=== PATIENT | male | born 1970 | race African-American/Black ===

== ENCOUNTER 2025-03-11 12:18 | Emergency (ER) | payer MEDICARE, MEDICAID ==
[~2025-03-11] VITALS: Ht 180.3 cm; Wt 91.0 kg
[~2025-03-11 12:18] MED LIST: AMLO5TAB88 PO; ASPI-1160 PO; TOPUD PO
[2025-03-11 12:21] VITALS: O2SAT 95
[2025-03-11] MEDS: IBUPROFEN 600MG TABLET PO ONE (14:01)
[2025-03-11 15:30] VITALS: BP 151/98; PULSE 76; RESP 18; TEMP 36.7; O2SAT 99
== END 2025-03-11 16:42 | disposition home or self-care (01) ==
LOC: ER 12:18
DX: M79.671 Pain in right foot (principal); E11.9 Type 2 diabetes mellitus without complications; I10 Essential (primary) hypertension
CPT/HCPCS: 99284; 73610; 73630; A6449

== ENCOUNTER 2025-05-08 11:20 | Inpatient (IN) | payer MEDICARE, MEDICAID ==
[~2025-05-08] VITALS: Ht 172.7 cm; Wt 77.1 kg
[2025-05-08 11:24] VITALS: O2SAT 97
[2025-05-08 14:51] LABS: CLARITY URINE CLEAR (CLEAR); COLOR URINE YELLOW (YELLOW); GLUCOSE URINE NEGATIVE (NEGATIVE); KETONES URINE NEGATIVE (NEGATIVE); LEUKOCYTE ESTERASE URINE NEGATIVE (NEGATIVE); NITRITE URINE NEGATIVE (NEGATIVE); OCCULT BLOOD URINE TRACE (NEGATIVE); PH URINE 5.5 (4.5-8.0); PROTEIN URINE TRACE (NEGATIVE); SPECIFIC GRAVITY URINE 1.024 (1.005-1.030); UROBILINOGEN URINE 0.2 E.U./dL (0.2-1.0)
[2025-05-08 15:03] LABS: BASOPHILS % 0.9 % (0.0-2.0); EOSINOPHILS % 0.8 % (0.0-5.0); HEMATOCRIT. 39.1 % (42.0-52.0); HEMOGLOBIN. 12.5 g/dL (14.0-18.0); LYMPHOCYTES % 12.9 % (20.0-50.0); MEAN PLATELET VOLUME 7.6 fl (7.4-10.4); MONOCYTES % 7.7 % (2.0-8.0); NEUTROPHILS % 77.7 % (40.0-76.0); PLATELET 332 x1000/uL (130-400); RED BLOOD CELL COUNT 4.16 mill/uL (4.7-6.1); RED CELL DISTRIBUTION WIDTH 15.0 % (11.6-14.6)
[2025-05-08 15:11] LABS: SQUAMOUS EPITHELIAL CELL URINE FEW /lpf (RARE/1+)
[2025-05-08 15:12] LABS: RBC URINE 0-2 /hpf (0-2); WBC URINE 0-2 /hpf (0-2); YEAST URINE NONE SEEN
[2025-05-08 15:13] LABS: BACTERIA URINE TRACE
[2025-05-08 15:18] LABS: CREATININE 1.1 mg/dL (0.6-1.3); UREA NITROGEN BLOOD 7 mg/dL (9-23)
[2025-05-08 15:19] LABS: PROTEIN TOTAL 9.0 g/dL (6.0-8.3)
[2025-05-08 15:20] LABS: ASPARTATE AMINOTRANSFERASE 23 IU/L (<34)
[2025-05-08 15:21] LABS: BILIRUBIN DIRECT 0.3 mg/dL (<=3.0); BILIRUBIN TOTAL 1.2 mg/dL (0.1-1.0)
[2025-05-08 15:43] LABS: ERYTHROCYTE SEDIMENTATION RATE 34 mm/hr (0-20)
[2025-05-08 16:28] LABS: TROPONIN I HIGH SENSITIVITY < 4 ng/L (3.0-53)
[2025-05-08] MEDS ORDERED: IPRATROPIUM/ALBUTEROL 0.5-3(2.5)MG/3ML NEB HHN PRN (17:45)
[2025-05-08] MEDS ORDERED: ONDANSETRON HCL 4MG/2ML INJ IV PRN (17:45)
[2025-05-08] MEDS ORDERED: NALOXONE HCL 0.4MG/ML VIAL IV PRN ×2 (18:00→21:30)
[2025-05-08] MEDS: HYDROCODONE/ACETAMINOPHEN 5/325MG TABLET PO PRN (20:00)
[2025-05-08] MEDS: ENOXAPARIN 40MG/0.4ML SYR SUBCUT SCH (20:04)
[2025-05-08] MEDS: CLONIDINE 0.1MG TABLET PO SCH (21:33)
[2025-05-08 21:45] LABS: *AMPHETAMINES SCREEN URINE NEGATIVE (NEGATIVE); *BARBITURATES SCREEN URINE NEGATIVE (NEGATIVE); *BENZODIAZEPINES SCREEN URINE NEGATIVE (NEGATIVE)
[2025-05-08 21:46] LABS: *COCAINE SCREEN URINE NEGATIVE (NEGATIVE); CANNABINOID URINE SCREEN NEGATIVE (NEGATIVE); ECSTASY MDMA SCREEN URINE NEGATIVE (NEGATIVE); METHADONE URINE SCREEN NEGATIVE (NEGATIVE); OPIATES URINE SCREEN NEGATIVE (NEGATIVE); PHENCYCLIDINE URINE SCREEN NEGATIVE (NEGATIVE)
[2025-05-08] MEDS ORDERED: IOHEXOL-300 100 ML BOTTLE ONE (23:36)
[2025-05-09] VITALS (7 sets, daily range): BP systolic 111–137; BP diastolic 72–86; PULSE 62–81; RESP 17–20; TEMP 36.3–37; O2SAT 97–100
[2025-05-09] MEDS ORDERED: CLONIDINE 0.1MG TABLET PO PRN (00:15)
[2025-05-09] MEDS ORDERED: MORPHINE SULFATE 2 MG/ML INJ (NOT FOR IM USE) IV PRN (00:15)
[2025-05-09] MEDS ORDERED: ONDANSETRON HCL 4MG/2ML INJ IV PRN (00:15)
[2025-05-09] MEDS ORDERED: HYDROCODONE/ACETAMINOPHEN 5/325MG TABLET PO PRN (00:15)
[2025-05-09] MEDS ORDERED: ACETAMINOPHEN 650MG/20.3ML UDC GT PRN (00:15)
[2025-05-09] MEDS: VANCOMYCIN 1.75GM PMX (XELLIA) 350 ML IV NR (02:40)
[2025-05-09] MEDS: AMLODIPINE 10MG TABLET PO SCH (08:24)
[2025-05-09] MEDS ORDERED: CEFTRIAXONE 1GM/50ML 50 ML IV SCH (09:00)
[2025-05-09 09:22] LABS: CREATININE 1.1 mg/dL (0.6-1.3)
[2025-05-09 09:23] LABS: UREA NITROGEN BLOOD 11 mg/dL (9-23)
[2025-05-09 09:31] LABS: BASOPHILS % 1.3 % (0.0-2.0); EOSINOPHILS % 1.6 % (0.0-5.0); HEMATOCRIT. 36.5 % (42.0-52.0); HEMOGLOBIN. 12.0 g/dL (14.0-18.0); LYMPHOCYTES % 19.5 % (20.0-50.0); MEAN PLATELET VOLUME 7.6 fl (7.4-10.4); MONOCYTES % 8.4 % (2.0-8.0); NEUTROPHILS % 69.2 % (40.0-76.0); PLATELET 329 x1000/uL (130-400); RED BLOOD CELL COUNT 3.88 mill/uL (4.7-6.1); RED CELL DISTRIBUTION WIDTH 14.8 % (11.6-14.6)
[2025-05-09 09:34] LABS: TROPONIN I HIGH SENSITIVITY < 4 ng/L (3.0-53)
[2025-05-09 09:36] LABS: CREATINE KINASE MB FRACTION 1.8 ng/mL (0.5-3.6)
[2025-05-09 09:41] LABS: T4 FREE 1.21 ng/dL (0.89-1.76)
[2025-05-09] MEDS: CEFTRIAXONE 2GM/50ML 50 ML IV SCH (10:26)
[2025-05-09] MEDS: METHYLPREDNISOLONE SOD SUCC 40MG/ML (ACT-O-VIAL) IV SCH (17:21)
[2025-05-09] MEDS: VANCOMYCIN 1GM/200ML PMX (BAXTER) IV SCH (20:18)
[2025-05-10] VITALS: BP 139/90; PULSE 78; RESP 18; TEMP 36.6; O2SAT 98
[2025-05-10 04:00] VITALS: BP 138/93; PULSE 62; RESP 17; TEMP 36.1; O2SAT 97
[2025-05-10 08:00] VITALS: BP 129/88; PULSE 71; RESP 18; TEMP 36.4; O2SAT 97
[2025-05-10 12:00] VITALS: BP 146/90; PULSE 73; RESP 18; TEMP 36.4; O2SAT 98
[2025-05-10 16:00] VITALS: BP 129/86; PULSE 75; RESP 18; TEMP 36.9; O2SAT 97
[2025-05-10 20:00] VITALS: BP 123/77; PULSE 74; RESP 20; TEMP 37; O2SAT 100
[2025-05-11] VITALS: BP 140/92; PULSE 74; RESP 18; TEMP 37.2; O2SAT 97
[2025-05-11 04:00] VITALS: BP 143/91; PULSE 60; RESP 17; TEMP 36.4; O2SAT 98
[2025-05-11 08:00] VITALS: BP 148/93; PULSE 69; RESP 19; TEMP 36.3; O2SAT 97
[2025-05-11 08:38] LABS: BASOPHILS % 0.8 % (0.0-2.0); EOSINOPHILS % 0.4 % (0.0-5.0); HEMATOCRIT. 38.4 % (42.0-52.0); HEMOGLOBIN. 12.4 g/dL (14.0-18.0); LYMPHOCYTES % 16.4 % (20.0-50.0); MONOCYTES % 6.2 % (2.0-8.0); NEUTROPHILS % 76.2 % (40.0-76.0); RED BLOOD CELL COUNT 4.10 mill/uL (4.7-6.1); RED CELL DISTRIBUTION WIDTH 14.7 % (11.6-14.6)
[2025-05-11 09:01] LABS: CREATININE 1.2 mg/dL (0.6-1.3); UREA NITROGEN BLOOD 17 mg/dL (9-23)
[2025-05-11 09:11] LABS: ANTI-NUCLEAR ANTIBODIES DIRECT Negative (Negative)
[2025-05-11 10:13] LABS: PLATELET 310 x1000/uL (130-400)
[2025-05-11 12:00] VITALS: BP 123/80; PULSE 63; RESP 18; TEMP 36.3; O2SAT 97
[2025-05-11] MEDS ORDERED: PRED10TA MT (16:04)
[2025-05-11 16:15] VITALS: BP 128/79; PULSE 78; RESP 16; TEMP 97.8
== END 2025-05-11 17:36 | disposition home or self-care (01) | DRG 554 ==
LOC: ER 11:20 → EDBEDREQ 17:04 → EDBEDREQTM 17:04 → EDBEDREQSVC 19:14 → ENRESERV 23:06 → 6EST 23:48
PROVIDERS: ADMIT Internal Medicine; ATTEND Internal Medicine
DX: M19.032 Primary osteoarthritis, left wrist (principal); E11.9 Type 2 diabetes mellitus without complications; I10 Essential (primary) hypertension; J44.9 Chronic obstructive pulmonary disease, unspecified; E78.5 Hyperlipidemia, unspecified
CPT/HCPCS: 36415; 73110; 73201; 80048; 80076; 80202; 80305; 80320; 81003; 82550; 82553; 83735; 84439; 84443; 84481; 84484; 84550; 85025; 85651; 86038; 86430; 86431; 86850; 86900; 93005; 99285; J0696; J1650; J2919; J3373; Q9967; G0480